=== PATIENT | female | born 1970 | race Caucasian/White ===

== ENCOUNTER 2022-05-25 17:13 | Outpatient (CLI) | payer OTHER, SELFPAY ==
[2022-05-25 12:14] LABS: Cholesterol* 254 mg/dL (90-199)
[2022-05-25 12:15] LABS: HDL Cholesterol* 45 mg/dL (>=50); LDL Cholesterol Calculated 168 mg/dL (<100); Triglycerides* 204 mg/dL (40-149)
[2022-05-25 13:42] LABS: Glucose* 105 mg/dL (60-115)
== END 2022-05-25 17:14 | disposition home or self-care (01) ==
PROVIDERS: PCP Family Medicine; Visit Provider Physician Assistant
DX: E66.9 Obesity, unspecified (principal); R68.89 Other general symptoms and signs; Z13.6 Encounter for screening for cardiovascular disorders
CPT/HCPCS: 80061; 82947; 84443

== ENCOUNTER 2022-07-12 13:14 | Outpatient (CLI) | payer OTHER, SELFPAY ==
--- NOTE | 2022-07-12 14:40 | CRLHL7_ITS ---
For Patients: As a result of the Century Cures Act, medical imaging exams and procedure reports are released immediately into your electronic medical record. You may view this report before your referring provider. If you have questions, please contact your health care provider. BILATERAL SCREENING MAMMOGRAM WITH COMPUTER-AIDED DETECTION AND TOMOSYNTHESIS TECHNIQUE: CC and MLO views were obtained. These mammographic images have been obtained using full-field digital technique. These mammographic images were interpreted with the benefit of computer-aided detection. Breast Tomosynthesis was used in this interpretation. COMPARISON FILM: 02/08/21, 02/06/20, 12/27/18. FINDINGS: There are scattered areas of fibroglandular density IMPRESSION: There is no radiographic evidence for malignancy. ASSESSMENT: BI-RADS Category 1: Negative RECOMMENDATION: Routine screening mammogram in 1 year. A lay language report of this examination will be provided to the patient. Conor Rendon M.D. Diagnostic Radiologist [email or web address] CHERYL/[email or web address] landaverde/Dictated by: Conor Rendon MD @ 07/13/2022 11:42:00 AM (Electronically Signed)
== END 2022-07-12 13:15 | disposition home or self-care (01) ==
PROVIDERS: PCP Family Medicine; Visit Provider Physician Assistant
DX: Z12.31 Encounter for screening mammogram for malignant neoplasm of breast (principal)
CPT/HCPCS: 77063; 77067

== ENCOUNTER 2023-06-30 10:08 | Outpatient (CLI) | payer OTHER, SELFPAY | END 2023-06-30 10:09 | disposition home or self-care (01) | LOC: NFLDREF 07-02 10:18 | PROVIDERS: PCP Family Medicine; Referring Provider Family Medicine; Visit Provider Physician Assistant | DX: Z13.9 Encounter for screening, unspecified (principal); Z13.1 Encounter for screening for diabetes mellitus; Z13.220 Encounter for screening for lipoid disorders; E66.9 Obesity, unspecified | CPT/HCPCS: 80061; 82947; 84443 ==

== ENCOUNTER 2023-07-31 11:04 | Outpatient (CLI) | payer OTHER, SELFPAY ==
--- NOTE | 2023-07-31 11:30 | CRLHL7_ITS ---
For Patients: As a result of the Century Cures Act, medical imaging exams and procedure reports are released immediately into your electronic medical record. You may view this report before your referring provider. If you have questions, please contact your health care provider. BILATERAL SCREENING MAMMOGRAM WITH COMPUTER-AIDED DETECTION AND TOMOSYNTHESIS TECHNIQUE: CC and MLO views were obtained. These mammographic images have been obtained using full-field digital technique. These mammographic images were interpreted with the benefit of computer-aided detection. Breast tomosynthesis was used in this interpretation. COMPARISON FILM: 07/12/22, 02/08/21, 02/06/20. FINDINGS: There are scattered areas of fibroglandular density. IMPRESSION: There is no radiographic evidence for malignancy. ASSESSMENT: BI-RADS Category 1: Negative RECOMMENDATION: Routine screening mammogram in 1 year. A lay language report of this examination will be provided to the patient. CONOR SORIANO M.D. Diagnostic Radiologist [email or web address] Transcribed: 2:[address]/Dictated by: Conor Soriano MD @ 07/31/2023 12:00:00 PM (Electronically Signed)
== END 2023-07-31 11:05 | disposition home or self-care (01) ==
LOC: MAMMO 11:05
PROVIDERS: PCP Family Medicine; Visit Provider Physician Assistant
DX: Z12.31 Encounter for screening mammogram for malignant neoplasm of breast (principal)
CPT/HCPCS: 77063; 77067

== ENCOUNTER 2023-10-16 19:24 | Outpatient (CLI) | payer OTHER, SELFPAY ==
--- NOTE | 2023-10-31 08:54 | W.PM.SLEEP ---
Sleep Study Details Details Interpreting Provider: Amada Saxena Date of Sleep Study: 10/16/23 Sleep Study Details: STUDY TYPE:? Home unattended ? BMI:? Not recorded ORDERING PROVIDER:? Jose INDICATION:? Concerns about sleep apnea ? SLEEP SUMMARY:? 240.5 minutes monitored RESPIRATORY SUMMARY:? AHI 4.2 Supine AHI 8.2 Low oxygen 84 0.7% of study oxygen less than 90% Snoring 84.6% PERIODIC LIMB MOVEMENTS OF SLEEP:? Not recorded during home study CARDIAC:? 58-107, mean 72.5 IMPRESSION:? This study overall does not demonstrate clinically significant obstructive sleep apnea. However the patient does have mild apnea in the supine position. RECOMMENDATION: If sleep disorder strongly suspected recommend an in-lab study. Patient should avoid supine sleep.
== END 2023-10-16 19:25 | disposition home or self-care (01) ==
LOC: SLEEP 19:25
PROVIDERS: PCP Physician Assistant Medical; Visit Provider Otolaryngology
DX: G47.30 Sleep apnea, unspecified (principal); G47.10 Hypersomnia, unspecified; R06.83 Snoring
CPT/HCPCS: 95806

== ENCOUNTER 2023-12-12 20:07 | Outpatient (CLI) | payer OTHER, SELFPAY ==
--- NOTE | 2023-12-27 08:37 | W.PM.SLEEP ---
Sleep Study Details Details Interpreting Provider: Jose Date of Sleep Study: 12/12/23 Sleep Study Details: STUDY TYPE:? Hospital-based overnight polysomnogram preceding MSLT. MSLT dictated separately ? BMI:? 36.6 ORDERING PROVIDER:? Jose INDICATION: Daytime hypersomnolence ? SLEEP SUMMARY:? 477.5 minutes total sleep time RESPIRATORY SUMMARY:? AHI 10.9, supine AHI 37.9, nonsupine AHI 9.8. No supine REM sleep was seen PERIODIC LIMB MOVEMENTS OF SLEEP: Index 7.3, index with arousal 0.3 CARDIAC:? Awake 85, asleep 68. No arrhythmias noted IMPRESSION:? Mild obstructive sleep apnea with significant supine position dependency but present in all positions. RECOMMENDATION: This positive sleep study negates the need for an MSLT. However this was performed this study was not Score jet. That will be dictated separately. Would recommend patient trial AutoSet CPAP or dental appliance.
--- NOTE | 2023-12-27 08:39 | P.SLS_ITS ---
Sleep Study Details Details Interpreting Provider: Jose Date of Sleep Study: 12/12/23 Sleep Study Details: STUDY TYPE:? Hospital-based multiple sleep latency test ? BMI:? [] ORDERING PROVIDER:? Jose INDICATION:? Daytime hypersomnolence with negative home study. Note this study was preceded by an overnight polysomnogram which did demonstrate clinically sig nificant obstructive sleep apnea. Therefore this test is considered unnecessary. ? SLEEP SUMMARY:? There were 5 nap periods. No REM stage sleep was seen. The mean sleep latency was per 4.4 minutes. RESPIRATORY SUMMARY:? Not red PERIODIC LIMB MOVEMENTS OF SLEEP:? Not really CARDIAC:? Not really IMPRESSION:? This MSLT demonstrates significant daytime hypersomnolence with a mean sleep latency of 4.4 minutes. No REM stage sleep was seen. This study was preceded by an overnight polysomnogram that did demonstrate clinically significant obstructive sleep apnea. RECOMMENDATION: Treat the obstructive sleep apnea and determine if the patient remains sleepy.
== END 2023-12-12 20:08 | disposition home or self-care (01) ==
LOC: SLEEP 20:08
PROVIDERS: PCP Physician Assistant Medical; Visit Provider Otolaryngology
DX: G47.33 Obstructive sleep apnea (adult) (pediatric) (principal)
CPT/HCPCS: 95805; 95810

== ENCOUNTER 2024-03-29 09:41 | Outpatient (CLI) | payer OTHER, SELFPAY | END 2024-03-29 09:42 | disposition home or self-care (01) | LOC: NFLDREF 04-03 13:54 | PROVIDERS: PCP Physician Assistant Medical; Referring Provider Physician Assistant Medical; Visit Provider Physician Assistant Medical | DX: I10 Essential (primary) hypertension (principal); E78.5 Hyperlipidemia, unspecified; E66.9 Obesity, unspecified; R73.03 Prediabetes | CPT/HCPCS: 80053; 80061; 84443 ==

== ENCOUNTER 2024-07-11 07:06 | Outpatient (CLI) | payer OTHER, SELFPAY ==
--- NOTE | 2024-07-11 08:59 | W.ANESCHARGE ---
Anesthesia Charges Start Date/Time Anesthesia Start Date: 07/11/24 Anesthesia Start Time: 08:04 Stop Date/Time Anesthesia Stop Date: 07/11/24 Anesthesia Stop Time: 08:56
== END 2024-07-11 07:07 | disposition home or self-care (01) ==
PROVIDERS: PCP Physician Assistant Medical; Visit Provider Surgery
DX: Z12.11 Encounter for screening for malignant neoplasm of colon (principal); D12.0 Benign neoplasm of cecum; D12.5 Benign neoplasm of sigmoid colon; D12.7 Benign neoplasm of rectosigmoid junction; K63.89 Other specified diseases of intestine; K64.9 Unspecified hemorrhoids; K57.30 Diverticulosis of large intestine without perforation or abscess without bleeding; Z86.0100 Personal history of colon polyps, unspecified
CPT/HCPCS: 00811; 45380; 45385; 88305; J2704

== ENCOUNTER 2024-08-01 08:07 | Outpatient (CLI) | payer OTHER, SELFPAY ==
--- NOTE | 2024-08-01 08:15 | CRLHL7_ITS ---
For Patients: As a result of the Century Cures Act, medical imaging exams and procedure reports are released immediately into your electronic medical record. You may view this report before your referring provider. If you have questions, please contact your health care provider. BILATERAL SCREENING MAMMOGRAM WITH COMPUTER-AIDED DETECTION AND TOMOSYNTHESIS TECHNIQUE: CC and MLO views were obtained. These mammographic images have been obtained using full-field digital technique. These mammographic images were interpreted with the benefit of computer-aided detection. Breast Tomosynthesis was used in this interpretation. COMPARISON FILM: 07/31/23, 07/12/22, 02/08/21. FINDINGS: There are scattered areas of fibroglandular density. IMPRESSION: There is no radiographic evidence for malignancy. ASSESSMENT: BI-RADS Category 1: Negative RECOMMENDATION: Routine screening mammogram in 1 year. A lay language report of this examination will be provided to the patient. Gualberto Combs M.D. Diagnostic/Nuclear Medicine Radiologist [email or web address] [email or web address] SP/Dictated by: Gualberto Combs MD @ 08/01/2024 11:22:00 AM (Electronically Signed)
== END 2024-08-01 08:08 | disposition home or self-care (01) ==
LOC: MAMMO 08:07
PROVIDERS: PCP Physician Assistant Medical; Visit Provider Physician Assistant Medical
DX: Z12.31 Encounter for screening mammogram for malignant neoplasm of breast (principal)
CPT/HCPCS: 77063; 77067

== ENCOUNTER 2024-09-24 08:36 | Outpatient (CLI) | payer OTHER, SELFPAY | END 2024-09-24 08:37 | disposition home or self-care (01) | PROVIDERS: PCP Physician Assistant Medical; Visit Provider Physician Assistant Medical | DX: E78.5 Hyperlipidemia, unspecified (principal); I10 Essential (primary) hypertension; R73.03 Prediabetes; Z13.29 Encounter for screening for other suspected endocrine disorder | CPT/HCPCS: 80053; 80061; 84443 ==

== ENCOUNTER 2025-04-10 16:27 | Outpatient (CLI) | payer OTHER, SELFPAY ==
--- NOTE | 2025-04-10 16:45 | CRLHL7_ITS ---
For Patients: As a result of the Century Cures Act, medical imaging exams and procedure reports are released immediately into your electronic medical record. You may view this report before your referring provider. If you have questions, please contact your health care provider. INDICATION: pain in right leg, swelling right foot COMPARISON: None. TECHNIQUE: A compression venous ultrasound exam was performed of the right lower extremity using carey-scale imaging, color Doppler and spectral Doppler analysis. FINDINGS: Sonographic imaging of the right lower extremity demonstrates normal compressibility and color Doppler venous blood flow within the common femoral vein, deep femoral vein, and the proximal greater saphenous vein. Within the thigh, the femoral vein is patent and compressible. At a lower level, the popliteal and posterior tibial veins also show normal compressibility and color Doppler venous blood flow. Limited imaging of the contralateral groin demonstrates a normal spectral waveform and color Doppler venous blood flow within the left common femoral vein. Small popliteal cyst is present on the right which measures 3.5 x 0.5 x 0.9 cm. IMPRESSION: No evidence of deep vein thrombosis within the right lower extremity. Dictated by Conor Rendon MD @ 04/11/2025 6:32:25 AM (Electronically Signed)
== END 2025-04-10 16:28 | disposition home or self-care (01) ==
LOC: US 16:27
PROVIDERS: PCP Physician Assistant Medical; Visit Provider Physician Assistant Medical
DX: M79.604 Pain in right leg (principal); M79.89 Other specified soft tissue disorders
CPT/HCPCS: 93971